=== PATIENT | female | born 1985 | race Caucasian/White ===

== ENCOUNTER 2018-01-12 19:20 | Emergency (ER) | payer OTHER ==
--- NOTE | 2018-01-12 19:25 | ED.ADGEN ---
Adult General Chief Complaint Chief Complaint (- Pt. still out front- deciding if she wants to have a ED evaluation.) 1945 hrs. )- Abd. Pain presenting complaint to registration. (-Pt. left, then came back after standing at front door- Pt. decided to be seen at 2014 hrs. ) (Pt. now in Room 4- how ever, now has decided to not be seen again. 2025 hrs. ) - I advised pt. to return at any time if she wishes an exam or to even talk to me. HPI HPI Patient is a 32 year old female who presents with above hx and complaints abdomen pain. Review of Systems Review of Systems Pt. decline exam Physical Exam Physical Exam No exam- pt decided to not be seen. EKG EKG [] Radiology/Procedures Radiology/Procedures [] Course & Med Decision Making Course & Med Decision Making Pertinent Labs and Imaging studies reviewed. (See chart for details) [] Final Impression Final Impression 1. Abdomen Pain[] Dragon Disclaimer Dragon Disclaimer This electronic medical record was generated, in whole or in part, using a voice recognition dictation system. JOHN FRANCO MD Jan 12, 2018 19:25
== END 2018-01-12 20:30 | disposition left against medical advice (07) ==
LOC: ER 19:20
DX: R10.9 Unspecified abdominal pain (principal); Z53.21 Procedure and treatment not carried out due to patient leaving prior to being seen by health care provider

== ENCOUNTER → 2020-03-31 | Outpatient (CLI) | payer BC, OTHER ==
--- NOTE | 2020-03-31 13:34 | RAD ---
STUDY: Complete renal sonogram INDICATION: Microscopic hematuria COMPARISON: None. TECHNIQUE: Real-time grayscale and color Doppler sonographic evaluation of both kidneys. The bladder was also evaluated. FINDINGS: Right kidney: Measures 12.6 cm in length. Normal cortical thickness and echogenicity. No complex cyst or mass. No hydronephrosis. Left kidney: Measures 12.7 cm in length. Normal cortical thickness and echogenicity. No complex cyst or mass. No hydronephrosis. Bladder: No localized wall thickening or layering debris. Bilateral ureteral jets were visualized. Miscellaneous: None. IMPRESSION: Unremarkable sonographic appearance of both kidneys and the urinary bladder. Electronically signed by: YULIANA LOPEZ MD (03/31/2020 12:36 PM) [id number]
== END ==
LOC: US 09:01
PROVIDERS: ATTEND Urology
DX: R31.9 Hematuria, unspecified (principal)
CPT/HCPCS: 76770